=== PATIENT | female | born 1995 | race Caucasian/White ===

== ENCOUNTER 2018-05-05 11:34 | Emergency (ER) | payer OTHER ==
--- NOTE | 2018-05-05 12:16 | ER Document Report ---
ED General - General Chief Complaint: Breast Problem Stated Complaint: BREAST PAIN Time Seen by Provider: 05/05/18 11:59 Mode of Arrival: Ambulatory Information source: Patient, [facility] Records Notes: 22-year-old female presents with complaint of bilateral breast pain. Patient is day 6. States that she has had hardening and pain of initially the right breast but now the left breast. Patient was prescribed medication for breast-feeding but is not aware of the name of the medication. Patient was also placed on an antibiotic 3 days ago but again cannot remember the name of the antibiotic. She denies any fever, chills, chest pain, shortness of breath, vomiting. Patient does admit to associated nausea. TRAVEL OUTSIDE OF THE [place] IN LAST 30 DAYS: No - HPI Onset: Other Onset/Duration: Persistent Quality of pain: Throbbing Severity: Moderate Associated symptoms: Nausea. denies: Chest pain, Chills, Fever, Vomiting, Shortness of breath - Bony alignment Exacerbated by: Other - Breast-feeding Relieved by: Denies Similar symptoms previously: Yes Recently seen / treated by doctor: Yes - Related Data Allergies/Adverse Reactions: No Known Allergies Allergy (Verified 05/05/18 11:35) Past Medical History - General Information source: Patient, [facility] Records - Social History Smoking Status: Never Smoker Frequency of alcohol use: None Drug Abuse: None Lives with: Family Family History: Reviewed & Not Pertinent Patient has suicidal ideation: No - Medical History Medical History: Negative Review of Systems - Review of Systems Notes: REVIEW OF SYSTEMS: CONSTITUTIONAL : Denies fever, chills, or sweats. Denies recent illness. Denies weight loss, recent hospitalizations. EENT: Denies visual changes, eye pain. Denies sore throat, oral lesions, difficulty swallowing. CARDIOVASCULAR: Denies chest pain. Denies palpitations. Denies lower extremity edema. RESPIRATORY: Denies cough. Denies shortness of breath, wheezing. GASTROINTESTINAL: Denies abdominal pain or distention. Denies nausea, vomiting , or diarrhea. Denies blood in vomitus, stools, or per rectum. Denies black, tarry stools. Denies constipation. GENITOURINARY: Denies difficulty urinating, painful urination, frequency, blood in urine, or vaginal discharge. MUSCULOSKELETAL: Denies back or neck pain or stiffness. Denies joint pain or swelling. SKIN: Denies rash, lesions or sores. HEMATOLOGIC : Denies easy bruising or bleeding. LYMPHATIC: Denies swollen glands. NEUROLOGICAL: Denies confusion or altered mental status. Denies loss of consciousness. Denies dizziness or lightheadedness. Denies headache. Denies weakness or paralysis. Denies problems difficulty with ambulation, slurred speech. Denies sensory loss, numbness, or tingling. Denies seizures. PSYCHIATRIC: Denies anxiety or stress. Denies depression, suicidal ideation, or homicidal ideation. Denies visual or auditory hallucinations. Physical Exam - Vital signs Vitals: Temp Pulse Resp BP Pulse Ox 98.5 F 88 14 123/71 97 05/05/18 11:44 05/05/18 11:44 05/05/18 11:44 05/05/18 11:44 05/05/18 11:44 - Notes Notes: PHYSICAL EXAMINATION: GENERAL: Well-appearing, well-nourished and in no acute distress. HEAD: Atraumatic, normocephalic. EYES: Pupils equal round and reactive to light, extraocular movements intact, conjunctiva are normal. ENT: Nares patent, oropharynx clear without exudates. Moist mucous membranes. NECK: Normal range of motion, supple without lymphadenopathy LUNGS: Breath sounds clear to auscultation bilaterally and equal. No wheezes rales or rhonchi. Left breast with mild erythema. No fluctuance, induration. Breasts firm. HEART: Regular rate and rhythm without murmurs ABDOMEN: Soft, nontender, nondistended abdomen. No guarding, no rebound. No masses appreciated. Female : deferred Musculoskeletal: Normal range of motion, no pitting or edema. No cyanosis. NEUROLOGICAL: Cranial nerves grossly intact. Normal speech, normal gait. Normal sensory, motor exams PSYCH: Normal mood, normal affect. SKIN: Warm, Dry, normal turgor, no rashes or lesions noted. Course - Re-evaluation Re-evalutation: 05/05/18 13:39 22-year-old female presents with her 6-day old male child with bilateral breast pain, engorgement. Vitals reviewed and within normal limits upon arrival. Patient is afebrile, normotensive. She does not appear toxic or dehydrated. She is in no acute distress. Patient has been on clindamycin for 3 days. Breast exam without obvious abscess, erythema, induration or fluctuance. She was encouraged to perform warm compresses and continue antibiotics that were prescribed. Patient does have an upcoming follow-up with PERINATAL DIRECTOR in 4 days. Urged to return if she develops fever, persistent vomiting. - Vital Signs Vital signs: Temp Pulse Resp BP Pulse Ox 97.9 F 93 14 115/72 75 L 05/05/18 13:40 05/05/18 13:40 05/05/18 11:44 05/05/18 13:40 05/05/18 13:32 Discharge - Discharge Clinical Impression: Mastitis in female, Breast pain, Encounter for breast feeding counseling Condition: Good Disposition: HOME, SELF-CARE Instructions: Mastitis ([facility]) Additional Instructions: Please continue your clindamycin and keep your already scheduled appointment with your PERINATAL DIRECTOR. Please return if you develop fever, persistent vomiting. Or any other symptom that concerns you.
[2018-05-05 13:45] VITALS: BP 115/72
== END 2018-05-05 13:44 | disposition home or self-care (01) ==
LOC: ER 11:34
DX: O91.22 Nonpurulent mastitis associated with the puerperium (principal); O92.79 Other disorders of lactation
CPT/HCPCS: 99283